=== PATIENT | female | born 1970 | race Two or more races ===

== ENCOUNTER 2022-12-22 00:24 | Emergency (ER) | payer OTHER ==
[~2022-12-22] VITALS: Ht 157.5 cm; Wt 67.7 kg
[2022-12-22] MEDS ORDERED: PERTUSS(ACELL),DIPH,TET VAC/PF 0.5 ML SYRINGE IM. ONE (01:00)
[2022-12-22] MEDS ORDERED: IBUPROFEN 600 MG TABLET PO ONE (01:45)
[2022-12-22] MEDS ORDERED: CEPH-558 PO (02:26)
[2022-12-22 03:00] VITALS: BP 124/71
== END 2022-12-22 03:00 | disposition home or self-care (01) ==
LOC: EMS 00:27
DX: S81.832A Puncture wound without foreign body, left lower leg, initial encounter (principal); Z98.890 Other specified postprocedural states; W25.XXXA Contact with sharp glass, initial encounter; Y93.89 Activity, other specified; Y92.89 Other specified places as the place of occurrence of the external cause; Y99.8 Other external cause status
CPT/HCPCS: 90471; 90715; 99283